=== PATIENT | male | born 1960 | race Caucasian/White ===

== ENCOUNTER 2023-03-20 08:17 | Inpatient (IN) ==
--- NOTE | 2023-02-21 12:13 | PAT Medication Instructions ---
Medication Instructions Date of Service February 21, 2023 Home Medications alprazolam 0.25 mg tablet 0.25 mg PO DAILY PRN Anxiety cholecalciferol (vitamin D3) 50 mcg (2,000 unit) tablet (Vitamin D3) 50 mcg PO QAM cinnamon bark 500 mg capsule (Cinnamon) 1,000 mg PO BID escitalopram oxalate 10 mg tablet 10 mg PO HS metoprolol succinate 25 mg tablet,extended release 24 hr 25 mg PO HS milk thistle 200 mg capsule 200 mg PO BID STOP taking 2 weeks before surgery cinnamon bark 500 mg capsule (Cinnamon) 1,000 mg PO BID milk thistle 200 mg capsule 200 mg PO BID DO NOT take the morning of surgery cholecalciferol (vitamin D3) 50 mcg (2,000 unit) tablet (Vitamin D3) 50 mcg PO QAM Take morning of surgery With a small sip of water, OTHERWISE NOTHING TO EAT OR DRINK AFTER MIDNIGHT: alprazolam 0.25 mg tablet 0.25 mg PO DAILY PRN Anxiety (if needed) Take evening before surgery escitalopram oxalate 10 mg tablet 10 mg PO HS metoprolol succinate 25 mg tablet,extended release 24 hr 25 mg PO HS Other Notes If you have any questions please call us at [phone] or [phone] or [phone] or [phone]
--- NOTE | 2023-02-27 09:28 | History & Physical Report ---
Date of Service February 27, 2023 date of surgery: 03/20/23 Procedure: Right Knee Poly Exchange Surgeon: Jamil Santoro, DO Assessment & Plan (1) Painful total knee replacement, right: Plan: Risk and benefits of the procedure were discussed, he wishes to proceed with surgical invention. Plan will be right knee polyethylene exchange, will plan an overnight stay with discharge home with home health physical therapy. Patient does have a history of DVT, will start him on Eliquis postoperatively. He otherwise has no other questions or concerns The risks and benefits have been discussed including, but not limited to, risk of infection, nerve injury, stiffness, loss of motion, failure to improve, etc. Reasonable outcomes and options of treatment were discussed. An explanation of appropriate alternatives to the procedure that may be advantageous were discussed and their risks and benefits, as well as the risks and benefits of not proceeding with treatment. I offered to answer any additional inquiries concerning the treatment involved. All the patient's questions were answered. The patient is agreeable, understanding of the treatment plan and alternatives, and wishes to proceed with the treatment plan. History of Present Illness Chief Complaint: Right knee pain Primary Care Provider: NO PCP Jan is a 62-year-old male who presented for preop evaluation prior to upcoming right knee surgery, he is scheduled for a right knee polyethylene exchange. He has a history of right total knee arthroplasty by Dr. Santoro in March 2010 and did well up until recently. He denies any specific injuries or trauma but has complaints of pain, intermittent swelling and instability. X-rays were reviewed which showed no signs of loosening or acute findings. He discussed further care with Dr. Santoro and wishes to proceed with a right knee poly exchange Allergies Allergy/AdvReac Type Severity Reaction Status Date / Time Unclassified Drugs Allergy Severe "Andual Uncoded 02/22/23 14:02 spice" > swelling, redness Home Medications Medication Instructions Recorded Confirmed Type alprazolam 0.25 mg tablet 0.25 mg PO DAILY PRN Anxiety 02/21/23 02/21/23 History cholecalciferol (vitamin D3) 50 50 mcg PO QAM 02/21/23 02/21/23 History mcg (2,000 unit) tablet (Vitamin D3) cinnamon bark 500 mg capsule 1,000 mg PO BID 02/21/23 02/21/23 History (Cinnamon) escitalopram oxalate 10 mg tablet 10 mg PO HS 02/21/23 02/21/23 History metoprolol succinate 25 mg 25 mg PO HS 02/21/23 02/21/23 History tablet,extended release 24 hr milk thistle 200 mg capsule 200 mg PO BID 02/21/23 02/21/23 History Past Med/Surg History Medical History Hx of gout Arthritis Elevated PSA Biopsy scheduled 03/25/23 Prediabetes Anxiety and depression Deep vein thrombosis 2009 (post-op knee surgery) Again post-op back surgery (was on blood thinner for short period both times) Hypertension Surgical History History of carpal tunnel release rt/left Fusion of spine lumbar fusion History of total knee replacement right History of colonoscopy History of tooth extraction History of tonsillectomy [place] filter in place placed before back surgery d/t blood clot hx>Removed 1 month later Family History Other No family history of adverse response to anesthesia Social History Smoking Status: Current some day smoker Tobacco Type: Cigarettes Cigarettes Per Day: 2 cig daily>advised; Second Hand Exposure: No; Do You Dip or Chew Tobacco: No; Hx Alcohol Use: Yes Alcohol type: beer Preferred Language: Burmese Licensed Nurse Practitioner Required: No Beliefs That Will Affect Care: None Current Living Situation: Alone Feels Safe at Home: Yes Safety Concerns: Feels Safe At This Time Assistive Devices: None Review of Systems Review of Systems: All systems reviewed & are unremarkable except as noted in HPI & below Constitutional: no fever, no chills and no sweats Respiratory: no cough and no dyspnea Cardiovascular: no chest pain, no dyspnea and no orthopnea Gastrointestinal: no abdominal pain, no nausea and no vomiting Musculoskeletal: as per Subjective / HPI Physical Exam Physical Exam: HT: 6ft 2in WT: 108.86kg Constitutional: WD/WN, vitals as above no acute distress Respiratory: normal respiratory effort, lungs clear to auscultation no respiratory distress, no labored breathing and does not use accessory muscles Cardiovascular: RRR, no murmur, no edema Gastrointestinal (Abdomen): normal bowel sounds, soft, nontender, no hepatosplenomegaly Musculoskeletal: Right Knee Exam Ambulates with a limp, overall neutral lignment, there is no atrophy warmth or ecchymosis noted, mild effusion, maximum tenderness medial retinaculum. positive patellar Apprehension , no crepitation with motion, valgus stress Negative, Vvrus stress Negative, no Extensor lag, Pain with Active range of motion, also passive painful ROM, Range of motion 0/3/110. No pain with active/passive ROM of ankle. Lower Extremity Strength normal. Lower Extremity Neuro-vascular is normal Results & Data Results & Data Diagnostic Findings Right knee x-rays: The patient is status post a right total knee arthroplasty. The hardware is intact. No fracture or dislocation. IMPRESSION: Right total knee arthroplasty. No evidence for hardware complication.
--- NOTE | 2023-02-28 11:58 | Anesthesiology Consultation ---
Date of Service February 28, 2023 Assessment & Plan (1) Encounter for pre-operative examination: - Infectious disease screening: Per assessment on 02/28/23: No known infectious disease contacts or current infectious disease symptoms. No noted Covid positive test result in past 90 days. - Kidney stones: Patient reports current kidney stone (asymptomatic) with plan for upcoming kidney stone surgery ("blasting") 03/14/[address] [facility]. Urologist aware of upcoming orthopedic surgery and preferred for kidney stone procedure to be done prior to orthopedic surgery due to possible need for post- op for blood thinners. Surgeon's office made aware. Advised patient to contact surgeon/PAT if any issues postoperatively with kidney stone surgery. - ETOH use: 5 beers daily on average (nighttime)- Denies morning ETOH use. - Thrombocytopenia: Platelets significantly low at 31 on preop labs. No known history/no comparison labs available. Surgeon's office made aware. Left message for patient to discuss further. Spoke with PCP office 03/01/23 to make them aware. Note written to PCP (Camila MARTINEZ) to address thrombocytopenia. Spoke with patient 03/05/23- he states that PCP sent him to ER for further evaluation r/t thrombocytopenia. Received [facility] ER visit note from 03/01/23- Platelet count 38 (persistently, significantly low) > "Discharge diagnosis: thrombocytopenia.. You will need to get you platelet level rechecked on Saturday. Call your PCP to arrange this or go to q-care or ER.. If you have any trauma or have any bleeding, you need to be seen in the ER." - Spoke with PCP office 03/05/23 to make aware that patient trying to get in communication with them about further evaluation/testing in regards to thrombocytopenia. They state they will reach out to patient to coordinate/discuss next steps. Awaiting PCP optimization in regards to thrombocytopenia (Camila Koehler PAC). Chart Review Chart Review: Patient seen in Pre Admission Testing Teaching & Discussion Pre-Anesthesia Teaching/Discussion Notes: Instructed NPO after midnight before surgery,except medications with 15 cc of water. Medication instructions provided according to the PAT guidelines. History Surgery Operation Date: 03/20/23 11:20 Proposed Procedures p Right Knee Poly Exchange - Jamil Santoro DO Height/Weight Height: 6 ft 2 in Weight: 108 kg Allergies Allergy/AdvReac Type Severity Reaction Status Date / Time Unclassified Drugs Allergy Severe "Andual Uncoded 02/22/23 14:02 spice" > swelling, redness Medications Home Medications Medication Instructions Recorded Confirmed Last Taken alprazolam 0.25 mg tablet 0.25 mg PO DAILY PRN Anxiety 02/21/23 02/21/23 Unknown cholecalciferol (vitamin D3) 50 50 mcg PO QAM 02/21/23 02/21/23 Unknown mcg (2,000 unit) tablet (Vitamin D3) cinnamon bark 500 mg capsule 1,000 mg PO BID 02/21/23 02/21/23 Unknown (Cinnamon) escitalopram oxalate 10 mg tablet 10 mg PO HS 02/21/23 02/21/23 Unknown metoprolol succinate 25 mg 25 mg PO HS 02/21/23 02/21/23 Unknown tablet,extended release 24 hr milk thistle 200 mg capsule 200 mg PO BID 02/21/23 02/21/23 Unknown Past Medical History Medical History Kidney stones Hx of gout Arthritis Elevated PSA Biopsy scheduled 03/25/23 Prediabetes Anxiety and depression Deep vein thrombosis 2009 (post-op knee surgery) ~2013 (post-op back surgery) Was on blood thinner for short period both times Hypertension Exercise / Class Metabolic Activity II 4-5 Yardwork/Stairs/Walk up hill Past Family History Family History Other No family history of adverse response to anesthesia Past Surgical History Surgical History History of carpal tunnel release R/L Fusion of spine lumbar fusion History of total knee replacement right History of colonoscopy History of tooth extraction History of tonsillectomy [place] filter in place placed before back surgery d/t blood clot hx>Removed 1 month later Past Anesthesia History No Hx of Anesthesia Complications and No Family Hx of Anesthesia Complications History of PONV No Hx of PONV and No Hx of Motion Sickness Social History Smoking Status: Current some day smoker Smoking cigarettes per day: 2 cig daily Do You Dip or Chew Tobacco: Yes (Daily- Advised none DOS) Hx Alcohol Use: Yes Alcohol type: beer alcohol intake frequency: 3 or more drinks per day (5 beers daily on average (nighttime)) substance use type: does not use Review of Systems Occasional cough associated with cold weather- unchanged/at baseline. Patient denies chest pain, shortness of breath, dyspnea on exertion, fever, chills, wheezing, palpitations. Physical Exam Vital Signs VITALS BP 130/82 P 75 TEMP 97.8 SP02 97%RA RESP 18 PHYSICAL Full cervical extension range of motion. Full TMJ range of motion. TMD 3.5 finger breaths Mallampati Score 2 Dentition: intact, lower sides implants Lungs: clear throughout to auscultation Cardiac: regular rate and rhythm, no murmurs noted Spine: normal Carotid arteries: negative bruit Extremities: no LE edema Lab Results Anesthesia Preop Results Results Anesthesia Widget: WBC 7.56 K/ul (4.8-10.8) 02/28/23 Hgb 15.7 g/dl (14.0-18.0) 02/28/23 Hct 44.5 % (42.0-52.0) 02/28/23 Plt 31 K/uL (130-400) L 02/28/23 Na 138 mmol/L (136-145) 02/28/23 K 4.5 mmol/L (3.5-5.1) 02/28/23 Cl 105 mmol/L (98-107) 02/28/23 CO2 27 mmol/L (21-32) 02/28/23 BUN 18 mg/dl (6-23) 02/28/23 Creat 1.08 mg/dl (0.6-1.4) 02/28/23 Glucose Level 190 mg/dl (70-99(Fasting)) H 02/28/23 PT 11.4 Seconds (9.0-12.0) 02/28/23 PTT 24.7 Seconds (21.0-31.0) 02/28/23 INR 1.0 (0.9-1.1) 02/28/23 HA1c 6.4 % (4.5-5.6) H 02/28/23 Urine Color Yellow 02/28/23 Urine Appearance Clear (Clear) 02/28/23 Urine pH 5.0 (4.5-7.5) 02/28/23 Urine Specific [place] 1.018 (1.000-1.030) 02/28/23 Urine Protein Negative (Negative) 02/28/23 Urine Glucose (UA) Negative (Negative) 02/28/23 Urine Ketones Negative (Negative) 02/28/23 Urine Blood Negative (Negative) 02/28/23 Urine Nitrite Negative (Negative) 02/28/23 Urine Bilirubin Negative (Negative) 02/28/23 Urine Urobilinogen Negative (Negative) 02/28/23 Urine Leukocyte Esterase Negative (Negative) 02/28/23 Blood Type B Positive 02/28/23 Antibody Screen NEGATIVE 02/28/23 Testing Laboratory Results 03/01/23 WBC 7.90 H/H 15.0/42.3 PLATELETS 38 SODIUM 135 POTASSIUM 4.0 CHLORIDE 104 CO2 28.0 BUN 18.0 CREATININE 1.20 GLUCOSE 199 PT 12.7 PTT 32.8 INR 1.13 Electrocardiogram Date: 02/28/23 Findings: + NSR @ (68) Chest X-Ray Date: 02/28/23 FINDINGS: No lines and tubes are seen. The cardiomediastinal silhouette is normal. The lungs are clear. No evidence of pleural effusion or pneumothorax. IMPRESSION: No acute chest disease. Echocardiogram Date: 10/01/22 EF 60-65%. Wall motion is normal. RVSP 17 mmhg. No significant valvular disease. Stress Test Date: 10/02/22 Type: nuclear Myocardial perfusion imaging normal. LVEF 64%. 56% MPHR.
[~2023-03-20 08:17] MED LIST: ACETAMINOPHEN 500 MG TAB PO SCH; BUPIVACAINE 0.5 % 5 MG/1 ML PF 10ML VIAL ONE; CeleBREX 200 MG CAP PO SCH; FAMOTIDINE 20 MG TAB PO SCH; GABAPENTIN 300 MG CAP PO SCH; LR 500ML BOLUS, THEN 15ML/HR IV SCH; LR 60ML/HR IV SCH; METOCLOPRAMIDE HCL 10 MG TABLET PO SCH; ROPIVACAINE 0.5% 5 MG/ML 30 ML VIAL ONE; ROPIVACAINE 0.5% HCL/PF 150 MG, BUPIVACAINE 0.75% MPF 20 ML, EPINEPHrine 30MG/30ML (OR ... INSTIL SCH; TRANEXAMIC ACID 1,000 MG **IV Intra-op IV SCH; TRANEXAMIC ACID 1,000 MG **IV Pre-op IV SCH; ceFAZolin 2000MG 2,000 MG/15 ML SYR IV SCH
[2023-03-20] MEDS ORDERED: PROPOFOL IV EMULSION 10 MG/ML 20 ML VIAL IV ONE (09:20)
[2023-03-20] MEDS ORDERED: MIDAZOLAM HCL 1 MG/ML 2ML VIAL ONE (09:20)
--- NOTE | 2023-03-20 09:38 | History & Physical Bridge Note ---
Date of Service March 20, 2023 History & Physical Bridge Note I have examined the patient, reviewed the History & Physical and in the interval since the performance of the History & Physical I have noted the following changes of clinical significance: no changes noted
[2023-03-20] MEDS ORDERED: ATROPINE SULFATE 0.1 MG/ML 10ML SYR IV PRN (09:55)
[2023-03-20] MEDS ORDERED: ePHEDrine sulfate 50 MG/ML AMP IV PRN (09:55)
[2023-03-20] MEDS ORDERED: ONDANSETRON INJ 2 MG/ML 2 ML VIAL IV PRN ×2 (09:55→13:42)
[2023-03-20] MEDS ORDERED: ORTHO JOINT ANESTHETIC ONE (10:18)
[2023-03-20] MEDS ORDERED: fentaNYL citrate PF 100 MCG/2 ML VIAL ONE (10:35)
[2023-03-20] MEDS ORDERED: ONDANSETRON INJ 2 MG/ML 2 ML VIAL ONE (10:44)
[2023-03-20] MEDS ORDERED: DEXAMETHASONE SOD INJ 4 MG/ML VIAL ONE (10:44)
[2023-03-20] MEDS ORDERED: HYDROmorphone INJ 1 MG/ML SYRINGE ONE (11:19)
--- NOTE | 2023-03-20 11:45 | Operative Report ---
Post Operative Report Pre & Post Diagnosis Operation Date: 03/20/23 10:00 Pre-Op Diagnosis: Right Knee Painful Total Knee Post-Op Diagnosis: Right Knee Painful Total Knee With broken poly tibial post I identified the patient and participated in the time-out.: Yes Procedure Operation Date: 03/20/23 10:00 Actual Procedures p Right Knee Poly Exchange With broken poly tibial post change to a size 13 journey 1 poly- Jamil Santoro DO Surgeon Jamil Santoro DO Reproduction Order Processor Richard BENAVIDES Estimated Blood Loss 5 Findings Consistent with Post-Op Diagnosis Patient presents with ongoing planes of pain about the right knee that was sudden in onset with a feeling of something giving way in the knee presents with a broken poly tibial post of the right total knee arthroplasty journey 1 total knee arthroplasty with instability Specimens Broken tibial poly Drains Medium bore Hemovac Anesthesia Type MAC Spinal Regional Complications none Disposition Accompanied Patient To Recovery: No Disposition: Recovery Room Indications Patient presents after having sudden onset of instability after having a broken polypost of his right total knee arthroplasty Description of Procedure After initiation of the [place] regional and general anesthesia the right lower extremity subsequent prepped and draped you sterile fashion with surgeon's type utilize #10 blade incision made of the region of the previous cyst dissection carried down through subcutaneous tissues to the extensor mechanism medial parapatellar incision was made the hypertrophic scar in the anterior aspect of the knee was all excised meticulous hemostasis obtained and maintained was irrigated with copious muscle sterile saline solution there was no obvious broken post at the base of the post the post broken portion was removed as well as the remaining portion of the tibial poly trial was placed a size 13 trial gave excellent stability in both flexion extension mid flexion wounds irrigated copious muscle sterile saline solution open technically met all particular hypertrophic scar was excised suddenly a new poly was placed wound was irrigated the experience was used the wound was subsequent closed with over #1 Vicryl with a medium bore Hemovac in the deep wound subcu closed 2-0 Vicryl skin was closed skin clips sterile compressive dressings placed patient was taken recovery in stable condition please note Richard BENAVIDES was an active participant in the case participated in exposure poly removal replacement of poly and wound closure was necessary for the case I attest to the content of the Intraoperative Record and any orders documented therein. Any exceptions are noted below.
[2023-03-20] MEDS: fentaNYL citrate PF 100 MCG/2 ML VIAL IV PRN ×4 (12:12→12:27)
--- NOTE | 2023-03-20 12:48 | Anesthesiology Progress Note ---
Date of Service March 20, 2023 Anesthesia Post Procedure Vital Signs Vital Signs: Temp Pulse Pulse Resp BP Pulse Ox O2 Del Method 03/20/23 12:45 97.5 F L 61 15 145/91 H 98 Nasal Cannula 03/20/23 12:35 66 15 144/93 H 99 Nasal Cannula 03/20/23 12:25 59 L 15 134/93 98 Nasal Cannula 03/20/23 12:15 67 16 145/92 H 100 Oxymask 03/20/23 12:09 97.2 F L 66 16 121/92 99 Oxymask 03/20/23 08:53 98.1 F 78 18 144/97 H 96 Room Air O2 Flow Rate 03/20/23 12:45 2 03/20/23 12:35 2 03/20/23 12:25 2 03/20/23 12:15 5 03/20/23 12:09 5 03/20/23 08:53 Transfer of Care Handoff Completed per policy Notes Mental Status: alert / awake / arousable and participated in evaluation Patient Amnestic to Procedure: Yes Nausea / Vomiting: adequately controlled Pain: adequately controlled Airway Patency, RR, SpO2: stable & adequate BP & HR: stable & adequate Hydration State: stable & adequate Anesthetic Complications: no major complications apparent and Pt Satisfied with anesthetic care
[2023-03-20] MEDS: HYDROmorphone INJ 0.5 MG/0.5 ML SYR IV PRN ×2 (13:05→13:10)
--- NOTE | 2023-03-20 13:12 | XRay Report ---
TWO VIEWS RIGHT KNEE CLINICAL HISTORY: Postoperative examination. FINDINGS: AP and crosstable lateral portable views of the right knee are obtained. A right knee arthr oplasty is in near anatomic alignment. There has been undersurface remodeling of the patella. No acut e fracture is seen. There are expected postoperative changes around the knee including skin clips, a surgical drain, soft tissue edema, and subcutaneous gas. IMPRESSION: Expected postoperative changes status post right knee arthroplasty. No acute fracture is seen. ACT 112: Negative or not required by law. Electronically signed by: Wagner Trevino M.D. 03/20/2023 1:11 PM
[2023-03-20] MEDS ORDERED: diphenhydrAMINE 50 MG/ML VIAL IV PRN (13:42)
[2023-03-20] MEDS ORDERED: SODIUM CHLORIDE 0.9% 1,000 ML IV SCH (13:42)
[2023-03-20] MEDS ORDERED: bisacodyL 10 MG SUPP PR PRN (13:42)
[2023-03-20] MEDS ORDERED: MAGNESIUM HYDROXIDE SUSP 30 ML UDC PO PRN (13:42)
[2023-03-20] MEDS ORDERED: ALPRAZolam 0.25 MG TABLET PO PRN (13:42)
[2023-03-20] MEDS ORDERED: HYDROmorphone INJ 0.5 MG/0.5 ML SYR IV PRN (13:42)
[2023-03-20] MEDS ORDERED: oxyCODONE HCL IR 5 MG TAB (IMMEDIATE RELEASE) PO PRN (13:42)
[2023-03-20] MEDS ORDERED: NALOXONE HCL 0.4 MG/1 ML VIAL/CARP IV PRN (13:42)
[2023-03-20] MEDS: ACETAMINOPHEN 500 MG TAB PO SCH ×2 (13:59→21:19)
[2023-03-20] MEDS: ceFAZolin 2000MG 2,000 MG/15 ML SYR IV SCH (17:44)
[2023-03-20] MEDS: DOCUSATE SODIUM 100 MG CAP PO SCH (19:57)
[2023-03-20] MEDS ORDERED: ESCITALOPRAM OXALATE 10 MG TAB PO SCH (21:00)
[2023-03-20] MEDS ORDERED: SENNA 8.6 MG TAB PO SCH (21:00)
[2023-03-20] MEDS ORDERED: METOPROLOL SUCC 25MG EXT REL TAB PO SCH (21:00)
[2023-03-21] MEDS: ceFAZolin 2000MG 2,000 MG/15 ML SYR IV SCH (01:17)
[2023-03-21] MEDS: ACETAMINOPHEN 500 MG TAB PO SCH (05:34)
[2023-03-21 06:08] LABS: Hematocrit (blood only) 36.8 % (42.0-52.0); Hemoglobin 13.2 g/dl (14.0-18.0); Mean Corpuscular Hemoglobin 31.6 pg (25.0-34.0); Mean Corpuscular Hgb Conc 35.9 g/dL (32.0-36.0); Mean Platelet Volume 10.3 fL (9.4-12.4); Platelet Count 161 K/uL (130-400); RDW Coefficient of Variation 11.9 % (11.5-14.5); RDW Standard Deviation 38.4 fL (36.4-46.3); Red Blood Count 4.18 M/uL (4.70-6.10); White Blood Count 15.46 K/ul (4.8-10.8)
[2023-03-21 06:22] LABS: BUN Creatinine Ratio 22.1 (10-20); Calcium 8.9 mg/dl (8.6-10.3); Creatinine Clr Calc Pharmacy 97.8 ml/min; Est GFR (African American) 89.4 ml/min; Est GFR (Non-African American) 77.1 ml/min; Potassium 4.3 mmol/L (3.5-5.1)
[2023-03-21] MEDS: DOCUSATE SODIUM 100 MG CAP PO SCH (07:42)
--- NOTE | 2023-03-21 07:44 | Orthopedic Progress Note ---
Date of Service March 21, 2023 Assessment & Plan (1) Painful total knee replacement, right: Plan: Postop day 1 status post polyethylene bearing change right knee PT/OT protocols. Weightbearing as tolerated. DVT prophylaxis-apixaban 2 and half milligrams p.o. twice daily, KEM Brown. Patient with previous history of DVT in the past. Pain management as written. DC planning-patient is planning for outpatient PT upon discharge. Plan for discharge to home. Admission and Anticipated Discharge Date Admission Date: March 20, 2023 Subjective Postop day 1 Patient lying in bed awake and alert. No complaints this morning. Pain is controlled. He denies shortness of breath, chest pain, lightheadedness. He is hoping to go home today. He states that he has been up to the bathroom several times during the night without difficulty. Physical Exam Physical Exam: Dressings are clean, dry, and intact. Calves are soft nontender. Neurovascular intact. Toes are mobile. He has good dorsiflexion plantarflexion of the right foot. Hemovac drainage was minimal this morning. Results & Data Vital Signs (Past 12 Hours) Vital Signs Temp Pulse Pulse Resp BP Pulse Ox O2 Del Method 03/21/23 07:24 36.4 C L 69 16 118/75 96 Room Air 03/21/23 02:42 36.5 C 70 16 125/70 95 Room Air 03/21/23 00:00 36.5 C 73 18 156/84 H 97 Room Air 03/20/23 20:15 Room Air 03/20/23 20:09 36.7 C 78 16 153/67 H 96 Room Air Laboratory Results Laboratory Results WBC 15.46 K/ul (4.8-10.8) H 03/21/23 05:39 RBC 4.18 M/uL (4.70-6.10) L 03/21/23 05:39 Hgb 13.2 g/dl (14.0-18.0) L 03/21/23 05:39 Hct 36.8 % (42.0-52.0) L 03/21/23 05:39 MCV 88.0 fL (80.0-100.0) 03/21/23 05:39 MCH 31.6 pg (25.0-34.0) 03/21/23 05:39 MCHC 35.9 g/dL (32.0-36.0) 03/21/23 05:39 RDW Std Deviation 38.4 fL (36.4-46.3) 03/21/23 05:39 RDW Coeff of Chadd 11.9 % (11.5-14.5) 03/21/23 05:39 Plt Count 161 K/uL (130-400) 03/21/23 05:39 MPV 10.3 fL (9.4-12.4) 03/21/23 05:39 Sodium 136 mmol/L (136-145) 03/21/23 05:39 Potassium 4.3 mmol/L (3.5-5.1) 03/21/23 05:39 Chloride 104 mmol/L (98-107) 03/21/23 05:39 Carbon Dioxide 23 mmol/L (21-32) 03/21/23 05:39 Anion Gap 9 (3-11) 03/21/23 05:39 BUN 23 mg/dl (6-23) 03/21/23 05:39 Creatinine 1.04 mg/dl (0.6-1.4) 03/21/23 05:39 Est Cr Clr Drug Dosing 97.8 ml/min 03/21/23 05:39 Est GFR ( Amer) 89.4 ml/min 03/21/23 05:39 Est GFR (Non-Af Amer) 77.1 ml/min 03/21/23 05:39 BUN/Creatinine Ratio 22.1 (10-20) H 03/21/23 05:39 Glucose 204 mg/dl (70-99(Fasting)) H 03/21/23 05:39 POC Glucose 116 mg/dl (70-99) H 03/20/23 12:53 Calcium 8.9 mg/dl (8.6-10.3) 03/21/23 05:39 Impressions Knee X-Ray 03/20/23 12:15 TWO VIEWS RIGHT KNEE CLINICAL HISTORY: Postoperative examination. FINDINGS: AP and crosstable lateral portable views of the right knee are obtained. A right knee arthroplasty is in near anatomic alignment. There has been undersurface remodeling of the patella. No acute fracture is seen. There are expected postoperative changes around the knee including skin clips, a surgical drain, soft tissue edema, and subcutaneous gas. IMPRESSION: Expected postoperative changes status post right knee arthroplasty. No acute fracture is seen. ACT 112: Negative or not required by law. Electronically signed by: Wagner Trevino M.D. 03/20/2023 1:11 PM
[2023-03-21] MEDS ORDERED: CHOLECALCIFEROL 1,000 UNITS 25 MCG TAB PO SCH (09:00)
[2023-03-21] MEDS ORDERED: MULTIVITAMIN TAB PO SCH (09:00)
[2023-03-21] MEDS: APIXABAN 2.5 MG TAB PO SCH ×2 (11:04→12:27)
--- NOTE | 2023-03-26 13:40 | Discharge Summary ---
Date of Service March 26, 2023 Admission HPI Per Admitting Provider Jan is a 62-year-old male who presented for preop evaluation prior to upcoming right knee surgery, he is scheduled for a right knee polyethylene exchange. He has a history of right total knee arthroplasty by Dr. Santoro in March 2010 and did well up until recently. He denies any specific injuries or trauma but has complaints of pain, intermittent swelling and instability. X-rays were reviewed which showed no signs of loosening or acute findings. He discussed further care with Dr. Santoro and wishes to proceed with a right knee poly exchange Admission Exam Per Admitting Provider Physical Exam: HT: 6ft 2in WT: 108.86kg Constitutional: WD/WN, vitals as above no acute distress Respiratory: normal respiratory effort, lungs clear to auscultation no respiratory distress, no labored breathing and does not use accessory muscles Cardiovascular: RRR, no murmur, no edema Gastrointestinal (Abdomen): normal bowel sounds, soft, nontender, no hepatosplenomegaly Musculoskeletal: Right Knee Exam Ambulates with a limp, overall neutral lignment, there is no atrophy warmth or ecchymosis noted, mild effusion, maximum tenderness medial retinaculum. positive patellar Apprehension , no crepitation with motion, valgus stress Negative, Vvrus stress Negative, no Extensor lag, Pain with Active range of motion, also passive painful ROM, Range of motion 0/3/110. No pain with active/passive ROM of ankle. Lower Extremity Strength normal. Lower Extremity Neuro-vascular is normal Principal Diagnosis painful right TKA with instability Discharge Data Allergies Allergy/AdvReac Type Severity Reaction Status Date / Time chlorhexidine Allergy Intermediate Rash Verified 03/20/23 10:21 Unclassified Drugs Allergy Severe "Andual Uncoded 03/20/23 08:51 spice" > swelling, redness Procedures Performed Operation Date: 03/20/23 10:00 Actual Procedures p Right Knee Polyethylene Exchange(Right) - Jamil Santoro DO Ordered Studies 03/20/23 05:00 US - OR guided needle placemen Routine Hospital Course (1) Painful total knee replacement, right: Patient: JAN CAMPOS Admit Date: 03/21/23 MR#: [id number] Att Phy: Jamil Santoro,D.OSha Acct ID: [id number] Domi Phy: Camila Koehler PA-C Date: 1960 [facility] Phy: Age: 62 Location: 3W Sex: M Room/Bed: [facility] cc: ~ *NOTICE TO RECEIVING [employer]/AGENCY This information is strictly Confidential and protected under [place] law. [place] law prohibits you from making any further disclosure of this information unless further disclosure is expressly permitted by the written consent of the person to whom it pertains or is authorized by law. A general authorization for the release of medical or other information is not sufficient for this purpose. Hospital accepts no responsibility if the information is made available to any other person, INCLUDING THE PATIENT. Date of Service March 21, 2023 Assessment & Plan (1) Painful total knee replacement, right: Plan: Postop day 1 status post polyethylene bearing change right knee PT/OT protocols. Weightbearing as tolerated. DVT prophylaxis-apixaban 2 and half milligrams p.o. twice daily, KEM Brown. Patient with previous history of DVT in the past. Pain management as written. DC planning-patient is planning for outpatient PT upon discharge. Plan for discharge to home. Admission and Anticipated Discharge Date Admission Date: March 20, 2023 Subjective Postop day 1 Patient lying in bed awake and alert. No complaints this morning. Pain is controlled. He denies shortness of breath, chest pain, lightheadedness. He is hoping to go home today. He states that he has been up to the bathroom several times during the night without difficulty. Physical Exam Physical Exam: Dressings are clean, dry, and intact. Calves are soft nontender. Neurovascular intact. Toes are mobile. He has good dorsiflexion plantarflexion of the right foot. Hemovac drainage was minimal this morning. Results & Data Vital Signs (Past 12 Hours) Vital Signs Temp Pulse Pulse Resp BP Pulse Ox O2 Del Method 03/21/23 07:24 36.4 C L 69 16 118/75 96 Room Air 03/21/23 02:42 36.5 C 70 16 125/70 95 Room Air 03/21/23 00:00 36.5 C 73 18 156/84 H 97 Room Air 03/20/23 20:15 Room Air 03/20/23 20:09 36.7 C 78 16 153/67 H 96 Room Air Laboratory Results Laboratory Results WBC 15.46 K/ul (4.8-10.8) H 03/21/23 05:39 RBC 4.18 M/uL (4.70-6.10) L 03/21/23 05:39 Hgb 13.2 g/dl (14.0-18.0) L 03/21/23 05:39 Hct 36.8 % (42.0-52.0) L 03/21/23 05:39 MCV 88.0 fL (80.0-100.0) 03/21/23 05:39 MCH 31.6 pg (25.0-34.0) 03/21/23 05:39 MCHC 35.9 g/dL (32.0-36.0) 03/21/23 05:39 RDW Std Deviation 38.4 fL (36.4-46.3) 03/21/23 05:39 RDW Coeff of Chadd 11.9 % (11.5-14.5) 03/21/23 05:39 Plt Count 161 K/uL (130-400) 03/21/23 05:39 MPV 10.3 fL (9.4-12.4) 03/21/23 05:39 Sodium 136 mmol/L (136-145) 03/21/23 05:39 Potassium 4.3 mmol/L (3.5-5.1) 03/21/23 05:39 Chloride 104 mmol/L (98-107) 03/21/23 05:39 Carbon Dioxide 23 mmol/L (21-32) 03/21/23 05:39 Anion Gap 9 (3-11) 03/21/23 05:39 BUN 23 mg/dl (6-23) 03/21/23 05:39 Creatinine 1.04 mg/dl (0.6-1.4) 03/21/23 05:39 Est Cr Clr Drug Dosing 97.8 ml/min 03/21/23 05:39 Est GFR ( Amer) 89.4 ml/min 03/21/23 05:39 Est GFR (Non-Af Amer) 77.1 ml/min 03/21/23 05:39 BUN/Creatinine Ratio 22.1 (10-20) H 03/21/23 05:39 Glucose 204 mg/dl (70-99(Fasting)) H 03/21/23 05:39 POC Glucose 116 mg/dl (70-99) H 03/20/23 12:53 Calcium 8.9 mg/dl (8.6-10.3) 03/21/23 05:39 Impressions Knee X-Ray 03/20/23 12:15 TWO VIEWS RIGHT KNEE CLINICAL HISTORY: Postoperative examination. FINDINGS: AP and crosstable lateral portable views of the right knee are obtained. A right knee arthroplasty is in near anatomic alignment. There has been undersurface remodeling of the patella. No acute fracture is seen. There are expected postoperative changes around the knee including skin clips, a surgical drain, soft tissue edema, and subcutaneous gas. IMPRESSION: Expected postoperative changes status post right knee arthroplasty. No acute fracture is seen. ACT 112: Negative or not required by law. Electronically signed by: Wagner Trevino M.D. 03/20/2023 1:11 PM Signed By: <Electronically signed by Adrian Carl MD> 03/21/23 1354 <Electronically signed by Richard Paige PA-C> 03/21/23 0744 Created: 03/21/23 0741 Total Time Total Time Spent Total Time Spent (In Minutes): 5 Discharge Plan Discharge Items Patient Disposition: Home - Home Health Services Reason For Visit: RIGHT TKA INSTABILITY Discharge Diagnosis: Painful right TKA with instability Activity: Per Instructions section Weightbearing: Full weightbearing Non-emergency contact: Surgeon Call non-emergency contact if: you have any medication questions, your pain is not controlled, your temperature is above 101.5, your wound has increased redness and your wound has increased drainage Follow-up/Referrals: Jamil Santoro DO [Surgeon] - (Follow-up with Dr. Santoro or his PA in 2 weeks from the day of surgery for your first postoperative visit.) Camila Koehler PA-C [Primary Care Provider] - Diet: Regular Addtl Attending Provider Instructions: ACTIVITY RECOMMENDATIONS: SELF CARE INSTRUCTIONS AFTER POLYETHYLENE BEARING CHANGE OF TOTAL KNEE REPLACEMENT A. You may need to continue a physical therapy program after discharge from the hospital. There are several options available to you. Your doctor will assist you in selecting the best one for you. 1. An out-patient facility 2 to 3 times a week for therapy or home therapy. 2. Continue working on all exercises taught to you in the hospital. Your goals should be to increase bending of your knee to 90 degrees and beyond and to fully straighten your knee. B. You may progress at your own pace from walking with a walker or crutches to a cane; then to no assistive devices. C. Make walking a part of your daily routine. Be up as much as comfortable with rest periods throughout the day. Rest with leg elevation is very important. Use the ice wrap frequently for the first 3-4 weeks. D. There are no restrictions on activities. You may ride in a car, shop, participate in radiologist diagnostic and all social activities. E. Wear the long elastic stockings (KEM hose) 20 hours a day for 2 weeks after surgery. They can be removed several times a day for laundering and for a bath. F. You may shower, no tub baths until cleared by your doctor. SPECIAL CARE INSTRUCTIONS: VERY IMPORTANT TO READ AND REVIEW A. There are a few signs you need to watch for after you are home. Call [facility] if you notice any of the followin. Increased severe knee pain. Some pain is expected especially when you exercise. 2. Increased swelling in your leg or knee; pain or swelling of the calf muscle in either lower leg. 3. Any fluid drainage from the incision. 4. Shortness of breath or chest pain. B. Please call [facility] at if you have any concerns or questions about your operation or recovery. The doctor or his nurse will return your call promptly. C. You must take antibiotics before dental work, bladder, bowel or other surgery. Your doctor will provide you with a permanent care to carry describing this precaution. IMPORTANT: * REMEMBER TO TAKE ELIQUIS (APIXABAN) 2.5MG PO IN THE AM AND PM FOR 4 WEEKS UNLESS OTHERWISE DIRECTED. THIS IS YOUR BLOOD THINNER. * CALL IF INCREASED PAIN, REDNESS, DRAINAGE OR FEVER GREATER THAT 101. * WEAR KEM HOSE 20 HOURS PER DAY FOR 2 WEEKS. * Amy Dressing - This is a large suction dressing covering your incision. This will help pull any excess drainage from the wound and allow your incision to heal properly. You may shower with this if you can keep the unit outside of the shower. If any bleeding or leakage is noted please call your doctor's office. This will remain on your incision for 7 days and then should be removed. This can be done yourself or by the home nursing staff if applicable. The entire unit is disposable once removed. Once removed, keep incision clean and dry. If redness or drainage is noted, please call your surgeon. . Once your amy dressing has been removed, please follow wound care instructions below. * DERMABOND Prineo- This is a mesh tape dressing that is covered with glue. It should remain in place until the incision is properly healed, usually 10-14 days. This dressing is designed to naturally slough off. You may trim the excess mesh tape as it peels off. Incision may be briefly wet in a shower. Dry immediately by blotting with a clean, dry towel. Do not bath or swim until instructed by your doctor. Do not scratch, rub, or pick at the dressing. Do not apply any topical ointments or lotions until dressing is completely removed and/or instructed by your doctor. There may be a small piece of suture material at one end of your incision. Do not pull or trim this. If it is bothersome or catching on clothing, you may cover it with a band-aid. FOLLOW UP VISIT: If appointment is not already scheduled: Please call [facility] to make a follow-up appointment for 2 weeks after your surgery at . Stand-Alone Forms: [facility], Smoking Cessation Medications and DC Order Prescriptions: New acetaminophen [Tylenol Extra Strength] 500 mg Tablet 1,000 mg PO Q8H 14 Days Qty: 84 0RF Eliquis 2.5 mg Tablet 2.5 mg PO BID 30 Days Qty: 60 0RF polyethylene glycol 3350 [Miralax] 17 gram powder in packet 17 g PO DAILY PRN (Reason: constipation) Qty: 5 0RF cefadroxil 500 mg capsule 500 mg PO BID Qty: 28 1RF oxycodone 5 mg tablet 5 mg PO Q4H MDD 6 PRN (Reason: pain) Qty: 30 0RF Continued alprazolam [Xanax] 0.25 mg Tablet 0.25 mg PO DAILY PRN (Reason: Anxiety) metoprolol succinate 25 mg Tablet Extended Release 24 Hr 25 mg PO HS escitalopram oxalate [Lexapro] 10 mg Tablet 5 mg PO HS cholecalciferol (vitamin D3) [Vitamin D3] 50 mcg (2,000 unit) Tablet 50 mcg PO QAM Patient Comments: unsure of dose Discharge Orders: Discharge Order (Routine); Ordered 03/21/23 Ordered By: Richard Thomas/Other Patient Handouts: Tips After Knee Surgery, Knee Replace Home Recovery Admission Data Admit Date/Time: 03/20/23 12:15 Attending Provider: Jamil Santoro Admit Provider: Jamil Santoro Primary Care Provider: Camila Koehler Other Providers: [facility] Other Interventions: Discharge Summary Assessment (RN) Last Done: 03/21/23 11:56
== END 2023-03-21 12:52 | disposition home health service (06) | DRG 468 ==
LOC: ASU 08:17 → 3W 08:17 → MERGE 11:20
DX: Y92.009 Unspecified place in unspecified non-institutional (private) residence as the place of occurrence of the external cause; F17.210 Nicotine dependence, cigarettes, uncomplicated; Z60.2 Problems related to living alone; D69.6 Thrombocytopenia, unspecified; T84.84XA Pain due to internal orthopedic prosthetic devices, implants and grafts, initial encounter; Z86.718 Personal history of other venous thrombosis and embolism; Y79.2 Prosthetic and other implants, materials and accessory orthopedic devices associated with adverse incidents; Z98.1 Arthrodesis status; T84.012A Broken internal right knee prosthesis, initial encounter; Z96.651 Presence of right artificial knee joint; I10 Essential (primary) hypertension